=== PATIENT | male | born 2000 | race Caucasian/White ===

== ENCOUNTER 2025-03-08 20:45 | Emergency (ER) | payer BC ==
--- NOTE | 2025-03-08 22:37 | RADIOLOGY REPORT ---
CHEST RADIOGRAPH Indication: Cough x several weeks Technique: Single frontal view of the chest was obtained COMPARISON: None FINDINGS: Lines and Tubes: None Lungs: Clear Pleura: No pleural effusion. No pneumothorax. Cardiomediastinal contours: Unremarkable IMPRESSION: 1. No abnormality demonstrated.
[2025-03-08] MEDS ORDERED: ALB0.5UD IH (22:50)
--- NOTE | 2025-03-08 22:50 | Physician Documentation ---
History of Present Illness Chief Complaint: See Chief Complaint Stated Complaint: BRONCHITIS Time Seen by MD: 22:00 HPI Patient is a 24-year-old male that presents to the emergency department for re- evaluation of his bronchitis to diagnosis. She reports he feels chest tightness and shortness of breath while coughing. Patient is in shortness of breath or alleviated when he stops coughing. She reports she is concerned for developing pneumonia just want to make sure that he has not at this time. Denies any fevers chills nausea vomiting diarrhea or any other concerning symptoms at this time. 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 Patient denies any history of asthma at this time. Medication Reconciliation Allergies: Coded Allergies: No Known Allergies (Unverified , 03/08/25) Review of Systems ROS As stated above in the HPI, otherwise all systems are reviewed and negative. Physical Exam Vital Signs: Temperature: 98.6, Source: Temporal, Heart Rate: 85, Respiratory Rate: 15, BP: 126/65, Pulse Oximetry: 99 Physical Exam VITALS: Reviewed and as above. GENERAL: Alert, no apparent distress. HEENT: Normocephalic, atraumatic, PERRL, EOMI, dry mucosa, no erythema RESPIRATORY: Lungs clear, normal breath sounds, no respiratory distress. CHEST: No accessory muscle use, no retractions, inspiratory or expiratory wheezes. CV: Regular rate, rhythm, no edema, no murmur, No: JVD GI: Soft, non-tender, bowels sounds present, no rebound, guarding, or rigidity BACK: No CVA tenderness, or swelling MUSCULOSKELETAL No deformities, no edema SKIN: Warm and dry, no rash NEURO: Oriented x4, No motor or sensory deficit PSYCH: Normal mood and affect, no agitation Progress Results/Orders Results/Orders Orders - CASS CONDON [employer] Chest,Single View (03/08/25 22:14) Completed Orders - CASS CONDON [employer] Chest,Single View (03/08/25 22:14) Vital Signs 03/08/25 20:48 Temp 98.6 Pulse 85 Resp 15 B/P (MAP) 126/65 Pulse Ox 99 Medical Decision Making Findings This patient presents with acute cough, most consistent with bronchitis. Presentation not consistent with acute bacterial pneumonia, influenza, asthma, transient airway hyperresponsiveness as chest x-ray is negative. Presentation not consistent with chronic causes of cough (including GERD, asthma, postnasal discharge, medication side effect, CHF, lung cancer or mass). 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 Patient will follow up with his primary care provider. Patient will return to the emergency department if he has any worsening of his current symptoms or any additional concerning symptoms that we discussed here today i.e. increased shortness of breath difficulty breathing chest pain cough with congestion fevers chills or any other concerning symptoms. Differential Dx:Considerations: Include: AAA, Angina/OR, Aortic dissection, Appendicitis, Bowel obstruction, Cholangitis, Cholelithasis, Constipation, Diverticular disease, Esophageal rupture, Esophagitis, Gastritis/PUD, Gastroenteritis, GI hemorrhage, Hernia, Hepatitis, Inflammatory BD, Ischemic bowel, Pancreatitis, Porphyria, Testicular torsion, Trauma, intraabdominal, Urinary obstruction, Urinary tract infection, Urolithiasis, Other Departure Disposition: HOME / SELF CARE / HOMELESS Impression: Primary Impression: Bronchitis Additional Impressions: Cough Chest tightness Condition: Stable Discharge Instructions: Acute Bronchitis, Adult, [id number] Additional Instructions: This patient presents with acute cough, most consistent with bronchitis. Presentation not consistent with acute bacterial pneumonia, influenza, asthma, transient airway hyperresponsiveness as chest x-ray is negative. Presentation not consistent with chronic causes of cough (including GERD, asthma, postnasal discharge, medication side effect, CHF, lung cancer or mass). 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 Patient will follow up with his primary care provider. Patient will return to the emergency department if he has any worsening of his current symptoms or any additional concerning symptoms that we discussed here today i.e. increased shortness of breath difficulty breathing chest pain cough with congestion fevers chills or any other concerning symptoms. Referrals: NO PRIMARY CARE PROVIDER (PCP) Prescriptions Albuterol Sulfate Nebs* (Proventil Nebs*) 2.5 Mg/0.5 Ml Vial.neb 2.5 MG IH Q6H PRN for SOB or wheezing for 90 Days, #1 EACH Prov: CASS CONDON 03/08/25 Education Educated: Patient Educated regarding: diagnosis, treatment, need for follow up Signature Scribe Signature: A Attestation: Scribed for Cass Condon by NATHAN Kevin . 03/08/25 22:51 CASS CONDON Mar 08, 2025 22:50
[2025-03-08 22:55] VITALS: BP 125/66; PULSE 80; RESP 18; TEMP 98.6; O2SAT 99
== END 2025-03-08 22:56 | disposition home or self-care (01) ==
LOC: ER 20:46
DX: J40 Bronchitis, not specified as acute or chronic (principal); R05.9 Cough, unspecified; R07.89 Other chest pain
CPT/HCPCS: 71045; 99283